=== PATIENT | male | born 1965 | race Caucasian/White ===

== ENCOUNTER 2017-01-30 17:30 | Outpatient (RCR) | payer OTHER, SELFPAY ==
--- NOTE | 2016-09-16 08:50 | HP.OTEVAL_ITS ---
Patient's Visit Information CURRY CR is a 51 year old M, referred to Occupational Therapy by Mikel Brush MD,, with a diagnosis of low end radius fx closed fx with routine heal. Date of Evaluation: 09/12/16 Occupational Therapist: Ana Pedroza - Subjective Subjective: Pt sitting in chair, calm and ready for OT evaluation. Pt states stiffness in L wrist, but no real pain and no decreased sensation. Pt demo decreased AROM L wrist, flexion, extension, ulnar/radial deviation. Pt states no problems with manipulation of buttons, lids or any difficulties with BADL/ IADLS. Pt states he does have pain when trying to golf. He still works and states no difficulty with wrist for work duties. States has no problems with opening containers. Pt is R hand dominent. Pt states no difficulty using L wrist for functional tasks around house such has weed eating, it is just stiff and doesn't have full range of motion in L wrist from sx in March after fall off ladder. Pt states was cleaning gutters out in March on a warmer day when fell off ladder and broke his L wrist and had to have plates put in. - Pain Left Wrist 1 Pain Intensity Range: 1 - Objective Objective/Observation: Pt sitting in chair, calm and ready for OT evaluation. Pt states stiffness in L wrist, but no real pain and no decreased sensation. Pt demo decreased AROM L wrist, flexion, extension, ulnar/radial deviation. - ROM ROM Comments: L wrist AROM extension 35', flexion 25', radial deviation 10', ulnar deviation 40'. R wrist AROM extension 62' flexion 72', radial deviation 25', ulnar deviation 40'. L wrist PROM extension 60', flexion 60', radial deviation 30', ulnar deviation 45' - Strength Application Counselor: 52 Lateral Pinch: 10 Tripod Pinch: 18 Strength Comments: L hand real estate associate strength 52. Lateral Pinch 10. Tripod Pinch 18 - Edema Other: no edema noted - Sensation Stereognosis: Normal - Right, Normal - Left Kinesthesia: Normal - Right, Normal - Left Sensation Comments: pt states L hand/wrsit sensation WNL even over scar from sx - Upper Limb Functional Index ULFI Score: 5 - DASH-Disabilities of Arm, Shoulder& Hand DASH Sum: 39 - Goals Goal:: Pt will demo increased real estate associate strength L hand by 10# at discharge to assist w/ functional tasks and hobbies. Goal:: Pt will demonstrate increased L wrist ROM all planes AROM by 15' to assist w/ functional tasks and hobbies. Goal:: Pt will demo 0/10 pain at rest and with activity by OT discharge. Goal:: Pt will demonstrate increased L wrist radial/ulnar deviation WFL to hold a golf club for golfing without pain 0/10 to complete his hobby of golfing by discharge from OT. Goal:: Pt will be educated on L wrist/hand HEP to increase strength and ROM with good understanding and demonstration 100%x. - Rehabilitation Rehabilitation Potential: Good - Anticipated Interventions Anticipated Interventions: A/AAROM/PROM, Strengthening, Massage, Modalities, Fine Motor Coord/Angelo, Home Program - Visit Plan Frequency: 2x /Week Duration: 6 Weeks General Plan: Increase L wrist/hand AROM and strength to assist w/ all functional tasks and hobbies back to PLOF. TEXT: Thank you for the opportunity to evaluate your patient. For Medicare and Medicare HMO plans, please review the plan of care and approve it. It will need to be FAXED BACK to us at [phone] for Medicare purposes. Please let me know if there are questions or concerns regarding this plan of care. Physician Signature: Date:
--- NOTE | 2016-10-27 12:48 | HP.OTCOM ---
OT Communication Note 10/27/[address] Mikel Brush MD Mr. Martines has been seen in occupational therapy for 4 weeks. He has made gains with his ROM and strength. His ROM is limited with the initial start of therapy and following PRE and stretching pt gains 15 degrees of motion - Pt may benefit from dynamic splint to improve his overall ROM- Initial arrival wrist ROM wrist extension 60 flexion 15 and once done with the session wrist extension is 60 flexion is 25 degrees. With the pt having the ability to use a dynamic splint at home he possible could gain more functional ROM. Sincerely, Carolina Maritnez, OTR/L, CHT Contact Information
--- NOTE | 2017-01-30 18:47 | HP.OTDCSUM ---
HP - OT D/C Summary It has been my pleasure to treat CURRY CR under orders from Mikel Brush MD, for the diagnosis of low end radius fx closed fx with routine heal for a total of 13 visit(s). Please see the following information for a summary of their discharge status. - Objective Objective/Function: Wrist 70/40. Left metals sales representative 135# - Goals Patient Goals: Regain Strength, Decrease Swelling/Stiffness, Use Hand/Wrist/Arm Normally Again, Increase ROM, Resume Hobbies Goal:: Pt will demo increased metals sales representative strength L hand by 10# at discharge to assist w/ functional tasks and hobbies. Goal:: Pt will demonstrate increased L wrist ROM all planes AROM by 15' to assist w/ functional tasks and hobbies. Goal:: Pt will demo 0/10 pain at rest and with activity by OT discharge. Goal:: Pt will demonstrate increased L wrist radial/ulnar deviation WFL to hold a golf club for golfing without pain 0/10 to complete his hobby of golfing by discharge from OT. Goal:: Pt will be educated on L wrist/hand HEP to increase strength and ROM with good understanding and demonstration 100%x. - Plan Plan: pt to work with dyn brace and return in 3-4 weeks - D/C Information Discharge Comments: PT has made done well with his therapy and has made gains in in ROM and strength. Pt was using a stat-a-dyne to to provide prolonged stretch- pt was instructed to cont. to use stat-a-dyne as needed. Pt is D/C at this time. If there are questions or concerns regarding this patient's occupational therapy, please fell free to call me at [phone]. Thank you for the referral of this patient. Sincerely, Carolina Martinez, OTR/L, CHT
== END 2017-01-30 18:00 | disposition home or self-care (01) ==
LOC: OT 17:30
PROVIDERS: Visit Provider Specialist
DX: S52.572D Other intraarticular fracture of lower end of left radius, subsequent encounter for closed fracture with routine healing (principal); X58.XXXD Exposure to other specified factors, subsequent encounter
CPT/HCPCS: 97018; 97110; 97140; 97165; 97166; 97530

== ENCOUNTER 2018-06-01 11:56 | Day surgery (SDC) | payer OTHER, SELFPAY ==
[2018-05-25 10:08] VITALS: BP 118/75; PULSE 77; RESP 16; TEMP 37.1; O2SAT 97; BMI 35.5
--- NOTE | 2018-05-25 10:36 | SDCEKG_ITS ---
Test Reason : Blood Pressure : / mmHG Vent. Rate : 077 BPM Atrial Rate : 077 BPM P-R Int : 148 ms QRS Dur : 088 ms QT Int : 372 ms P-R-T Axes : 014 013 010 degrees QTc Int : 420 ms Normal sinus rhythm Normal ECG Confirmed by MILTON IRVIN, JAZMYN ([id number]), newspaper managing editor LIZETH BRADSHAW ([id number]) on 05/28/2018 2:51:30 PM Referred By: Julio Tovar Confirmed By:JAZMYN ROSE MD
[2018-05-25 10:47] LABS: Hematocrit 48.2 % (40-54); Hemoglobin 16.2 g/dl (13.0-16.5); Mean Corp Hgb Conc 33.6 g/gl (32-36); Mean Corpuscular Hgb 32.4 pg (27.0-32.0); Mean Corpuscular Volume 96.4 fL (80-94); Mean Platelet Vol. 10.4 fl (6.2-12.0); Platelet Count 230 K/mm3 (150-450); RBC Distribution Width CV 13.1 % (11.6-14.6); RBC Distribution Width SD 45.5 fl (35.1-43.9); White Blood Count 7.6 K/mm3 (4.4-11.0)
[2018-05-25 10:49] LABS: Scan Indicated on CBC? Y/N NO
--- NOTE | 2018-06-01 08:19 | HP.PCM_ITS ---
History and Physical Date of Admission: 06/01/18 New patient, 53-year-old male who does have a history of smoking about two weeks ago had gross hematuria which lasted about two days and then a few days ago past another blood clot. He's otherwise healthy takes medication for cholesterol. He does have an extensive smoking history but currently not a smoker. He had a CAT scan done the demonstrated an abnormal nodule within the bladder possibility of a blood clot or neoplasm was discussed. Today were to do a cystoscopy to evaluate this abnormal nodule inside the bladder. Doesn't have any problems with urination. No frequency urgency or palms empty his bladder his PSA has been normal. ALLERGIES: None MEDICATIONS: Simvastatin PSH: None PSH Notes: WRIST SURGERY NON- PSH: Patient not documented to have received pneumococcal vaccination PMH: Calculus of kidney Gross hematuria NON- PMH: Pure hypercholesterolemia, unspecified Immunizations: None FAMILY HISTORY: Colon Cancer - Runs in Family Diabetes II - Runs in Family Hypertension - Runs in Family SOCIAL HISTORY: Marital Status: Preferred Language: Vietnamese; Ethnicity: Not Or ; Race: White Current Smoking Status: Patient does not smoke anymore. Tobacco Use Assessment Completed: Used Tobacco in last 30 days? Smoking cessation counseling was provided. Does not use smokeless tobacco. Social Drinker. Does not use drugs. Drinks 4+ caffeinated drinks per day. Has not had a blood transfusion. REVIEW OF SYSTEMS: Constitutional: Patient denies fever, chills, weight loss, and weight gain. Eyes: Patient denies blurry vision, cataracts, and glaucoma. Ears, Nose, Mouth, Throat: Patient denies hearing loss, sleep apnea, and sinus infections. Cardiovascular: Patient denies chest pains, swollen ankles, irregular heartbeat, and pacemaker/defib. Respiratory: Patient denies shortness of breath, wheezing, oxygen, and cpap machine. Gastrointestinal: Patient denies abdominal pain, diarrhea, constipation, nausea, and vomiting. Genitourinary: Patient reports blood in the urine and history of stones. Nuria ent denies frequent urination, urinary retention, get up at night to void, leakage of urine, painful urination, frequent uti's, difficulty starting stream, weak stream/scanty, and bedwetting. Musculoskeletal: Patient denies sore muscles, back pain, and gout. Integumentary/Skin: Patient denies rash, skin cancer, and chronic itching. Neurological: Patient denies falling/unsteady, paralysis, and stroke/tia. Hematologic/Lymphatic: Patient denies abnormal bleeding, blood transfusion, swollen lymph nodes, deep venous thrombosis, and pulmonary embolism. VITAL SIGNS: 05/08/2018 08:46 AM Weight 265 lb / 120.2 kg Height 73 in / 185.42 cm BP 158/90 mmHg BMI 35.0 kg/m? - BMI Counseling was provided. PHYSICAL EXAMINATION: Scrotum: No lesions. No edema. No cysts. No warts. Epididymides: Right: no spermatocele, no masses, no cysts, no tenderness, no induration, no enlargement. Left: no spermatocele, no masses, no cysts, no tenderness, no induration, no enlargement. Testes: No tenderness, no swelling, no enlargement left testes. No tenderness, no swelling, no enlargement right testes. Normal location left testes. Normal location right testes. No mass, no cyst, no varicocele, no hydrocele left testes. No mass, no cyst, no varicocele, no hydrocele right testes. Urethral Meatus: Normal size. No lesion, no wart, no discharge, no polyp. Normal location. Penis: Circumcised, no warts, no cracks. No dorsal Peyronie's plaques, no left corporal Peyronie's plaques, no right corporal Peyronie's plaques, no scarring, no warts. No balanitis, no meatal stenosis. MULTI-SYSTEM PHYSICAL EXAMINATION: Constitutional: Well-nourished. No physical deformities. Normally developed. Good grooming. Neck: Neck symmetrical, not swollen. Normal tracheal position. Respiratory: No labored breathing, no use of accessory muscles. Cardiovascular: Normal temperature, normal extremity pulses, no swelling, no varicosities. Lymphatic: No enlargement of neck, axillae, groin. Skin: No paleness, no jaundice, no cyanosis. No lesion, no ulcer, no rash. Neurologic / Psychiatric: Oriented to time, oriented to place, oriented to person. No depression, no anxiety, no agitation. Gastrointestinal: No mass, no tenderness, no rigidity, non obese abdomen. Eyes: Normal conjunctivae. Normal eyelids. Ears, Nose, Mouth, and Throat: Left ear no scars, no lesions, no masses. Right e ar no scars, no lesions, no masses. Nose no scars, no lesions, no masses. Normal hearing. Normal lips. Musculoskeletal: Normal gait and station of head and neck. PAST DATA REVIEWED: Source Of History: Patient Lab Test Review: Basic Metabolic Panel (BMP), CBC Records Review: Previous Doctor Records, Previous Patient Records Urine Test Review: Urinalysis X-Ray Review: C.T. Abdomen/Pelvis: Reviewed Films. Reviewed Report. Discussed With Patient. 12/28/17 02/01/17 PSA Total PSA 0.69 0.67 PROCEDURES: Flexible Cystoscopy - 83969 Risks, benefits, and some of the potential complications of the procedure were discussed at length with the patient including infection, bleeding, voiding discomfort, urinary retention, fever, chills, sepsis, and others. All questions were answered. Informed consent was obtained. Antibiotic prophylaxis was given. Sterile technique and intraurethral analgesia were used. Meatus: Normal size. Normal location. Normal condition. Urethra: No strictures. External Sphincter: Normal. Verumontanum: Normal. Prostate: Non-obstructing. Mild hyperplasia. Bladder Neck: Non-obstructing. Ureteral Orifices: Normal location. Normal size. Normal shape. Effluxed clear urine. Bladder: A few trigone tumors. A dome tumor. 3+ cm tumor. Multifocal tumors. No trabeculation. Normal mucosa. No stones. Urinalysis - 96492 Dipstick Dipstick Cont'd Specimen: Voided Blood: Neg Appearance: Clear pH: 5.0 Color: Yellow Protein: Neg Glucose: Normal Urobilinogen: Neg Bilirubin: Neg Nitrites: Neg Ketones: Neg Leukocyte Esterase: Neg ASSESSMENT: ICD-10 Details 1 : Gross hematuria - R31.0 2 Personal history of urinary calculi - Z87.442 3 Abnormal radiologic findings on diagnostic imaging of renal pelvis, ureter, or bladder - R93.41 4 NON-: Pure hypercholesterolemia, unspecified - E78.00 PLAN: Document Letter(s): Created for Patient: Clinical Summary Notes: 53-year-old male with gross hematuria cystoscopy was done today he has a large tumor next to the left ureter orfice and multiple tumors within the bladder plan to set him up for a transurethral resection of bladder tumors. Probably a stent in the left side will need to resected the orfice on the left side. And also has multiple tumors throughout the bladder need to be cauterized. Also will place mitomycin C in the bladder to prevent recurrences. Explain to the patient of the surgery what to expect and will be set up in a few weeks.
[2018-06-01 12:12] VITALS: BP 106/67; PULSE 65; RESP 16; TEMP 36.6; O2SAT 97; BMI 35.5
[2018-06-01] MEDS: Cefazolin 2 GM in 0.9% Normal Saline 100 ML IV (12:58)
--- NOTE | 2018-06-01 13:08 | DCINST_ITS ---
Discharge Diet: Light diet - advance as tolerated Discharge Activity: Return to Normal Activity Call your doctor if your incision/area has: Continuous Slow Oozing, Sudden Increased Bleeding, Increased Pain/ Swelling, Increased Redness, Foul Smelling Discharge, Swelling at the incision site Call your doctor if you observe: Fever of 101 or Higher, Inability to urinate, Inability to have a bowel movement, Uncontrolled pain Suture Line Care: Avoid Pulling/Pushing, Avoid Pinching/Bending Instructions: Treating Bladder Cancer: TUR (Transurethral Resection) Allergies/Adverse Reactions: Allergies No Known Allergies Allergy (Verified 05/25/18 10:04) Medications to take at Discharge Ascorbic Acid [Vitamin C] 2 tab PO DAILY 05/25/18 Multivit-Min/FA/Lycopen/Lutein [Centrum Silver Tablet] 1 each PO DAILY 05/25/18 Simvastatin [Zocor] 40 mg PO QHS 05/25/18 Acetaminophen [Tylenol Extra Strength] 500 mg PO Q4H PRN PRN #20 tablet 06/01/18 Ibuprofen 600 mg PO Q6H PRN PRN #20 tablet 06/01/18 The following prescriptions were given: Acetaminophen [Tylenol Extra Strength] 500 mg PO Q4H PRN PRN #20 tablet PRN Reason: Pain Ibuprofen 600 mg PO Q6H PRN PRN #20 tablet PRN Reason: Pain Primary Care Physician: Per Fernandez MD [Primary Care Provider] - Test Results: Test results from this visit will be discussed in further detail at your follow- up appointment, if applicable. Please Follow Up With: Julio Tovar MD When: in 2 weeks, please call to make an appointment.
--- NOTE | 2018-06-01 13:30 | BLA_PTH ---
PATIENT: CURRY CR LOC: [facility] [place] U#:[id number] AGE/SX: 53/M ROOM: RE06/01/[address]: Dr. Julio Tovar MD : 1965 BED: DIS: 06/01/2018 SPEC #: [id number] RECD: 06/04/18 07:21 STATUS: CLARA TYLER #: [id number] NATI: 06/01/18 13:[address]: Julio Tovar DEPT: SURGICAL PATHOLOGY RECD BY: Fidencio Quezada ENTERED: 06/04/18 09:38 SP TYPE: BLADDER BX OTHR DR: Dr. Per Fernandez MD Tissues: Urinary bladder, NOS Procedures: Surgery Specimen Level V HEADER OPERATION: Cysto, Transurethral resection bladder, Olympus PRE-OP DIAGNOSIS: Bladder cancer TISSUE SUBMITTED: Bladder tumor MICROSCOPIC DIAGNOSIS Bladder tumor, TUR: Papillary urothelial carcinoma. See cancer summary below. SJ:she 06/05/18 BLADDER CANCER (TUR) SUMMARY: Procedure - TURBT Histologic type - urothelial (transitional cell) carcinoma Histologic grade - low grade (1-2/3) Tumor configuration - papillary Adequacy of material for determining muscularis propria invasion - muscularis propria (detrusor muscle) is not identified. Lymph-Vascular invasion - not identified Microscopic extent of tumor - noninvasive papillary carcinoma Additional pathologic findings - none The above summary is in compliance with [employer] (CAP) Cancer Protocols Checklist and [place] Joint Committee on Cancer (AJCC), Staging Manual, 8th Ed. COMMENT Case has been reviewed in consultation with Dr. Anderson who concurs with the above diagnosis. IDC:AM MICROSCOPIC DESCRIPTION Slides are reviewed. GROSS DESCRIPTION Received in fixative is one container labeled with the patient's name and designated bladder tumor. The specimen consists of multiple irregular fragments of light mcgregor soft tissue that in aggregate measure 2 x 1.5 x 0.2 cm. The specimen is totally submitted in one cassette. / AM:she 06/04/18 TC:0 CPT: 77796
--- NOTE | 2018-06-01 13:43 | PCM.OPRPT ---
Report of Operation Date of Procedure: 06/01/18 Pre-Operative Diagnosis: Bladder cancer multifocal with a 3 cm mass over the left ureteral orifice and a 1 cm mass over the right ureteral orifice Post-Operative Diagnosis: Same Surgery/Procedure Performed:: Transurethral resection of large bladder tumor multifocal tumors, left retrograde pyelogram, fluoroscopic interpretation of images. Instillation of mitomycin-C, dilation of urethral meatus Description of Surgical Findings:: 53-year-old male taken back to the operating room at the smooth induction of general anesthesia he was placed in dorsolithotomy position, patient was prepped and draped in usual sterile fashion, he had a very tight meatus so this was dilated with sounds up to 20 X Jamaican using an 18 Jamaican sound and is 20, then 22 then 24 with plenty of lubrication then after this I went in with a 24 Jamaican rigid noncontinuous flow Olympus resectoscope. I inspected the bladder with both the 30 and 70 degree lens identified all the tumors he had a tumor occupying over the left ureteral orifice about 3 cm in size but mostly papillary tumor with a small stalk he also had a 1 cm tumor over the right ureteral orifice, he also had a small little tumor on the right lateral wall. I then switched over to the resectoscope the patient was under anesthesia for paralyzation I resected the tumor over the left ureteral orifice is very close to the orifice but I did not appear involved after resecting this and I went to the right side resected that tumor and also cauterized a small tumor on the lateral wall after cauterizing all these tumors I inspected again with 30 and 70 degree lens I did not see any other tumors within the bladder I think cannulated the left ureteral orifice with a Pollack and performed a retrograde pyelogram retrograde pyelogram was normal with normal contrast going into the ureter and the renal pelvis with no filling defects and then good drainage. Therefore no stent was placed on the left side. I then took out the resectoscope look back in with a 21 Jamaican rigid cystourethroscope with a 30 and 70 degree lens could see some irritation redness around the area of resection on both sides so I decided to cauterize this some more so went back in with the resectoscope and cauterized around the area of the resection to I had a nice wide margin from the original resection once this was completed then I put a 16 Jamaican catheter into the bladder but the bladder drain and then instilled 40 cc of 40 mg of mitomycin-C into the bladder this was clamped and will be unclamped in 1 hour. Patient anesthetic she is being reversed. Type of Anesthesia:: General Anesthesiologist: Edson Garcia Special Medications: Mitomycin C 40mg/40cc Drains: 16 fr garcia Estimated Blood Loss (mL): none - Admit VTE Documentation VTE Present on Admission: No VTE Mechan Device Prophylaxis: SCD's
[2018-06-01 13:59] VITALS: BP 106/67; BP 123/82; PULSE 73; RESP 14; TEMP 37.3; O2SAT 89
[2018-06-01 14:15] VITALS: BP 106/67; BP 118/75; PULSE 62; RESP 16; O2SAT 99
[2018-06-01 14:30] VITALS: BP 106/67; BP 108/71; PULSE 62; RESP 16; O2SAT 97
[2018-06-01 14:46] VITALS: BP 106/67; BP 123/74; PULSE 61; RESP 16; TEMP 36.9; O2SAT 97
[2018-06-01] MEDS: Acetaminophen 325 MG Tablet 650 MG PO (15:16)
[2018-06-01 15:38] VITALS: BP 106/67; BP 135/77; PULSE 64; RESP 16; TEMP 36.9; O2SAT 97
== END 2018-06-01 15:46 | disposition home or self-care (01) ==
LOC: SDC 11:58 → AC 11:59
PROVIDERS: Anesthesiology; Family Provider Family Medicine; PCP Family Medicine; Referring Provider Urology; Visit Provider Urology
PROC: 0TBB8ZZ Excision of Bladder, Via Natural or Artificial Opening Endoscopic (ICD-10-PCS; CPT 52005; principal; 2018-06-01 13:20)
DX: C67.9 Malignant neoplasm of bladder, unspecified (principal); R93.41 Abnormal radiologic findings on diagnostic imaging of renal pelvis, ureter, or bladder; E78.00 Pure hypercholesterolemia, unspecified; Z87.891 Personal history of nicotine dependence; Z87.442 Personal history of urinary calculi; Z79.899 Other long term (current) drug therapy
CPT/HCPCS: 00912; 52005; 52240; 53899; 76000; 85027; 88305; 88307; 93005; J7120; J2405; J3490; J9280

== ENCOUNTER → 2019-03-01 11:31 | Outpatient (CLI) | payer OTHER, SELFPAY ==
--- NOTE | 2019-02-28 | IMM_PTH ---
PATIENT: CURRY CR LOC: [facility] U#:[id number] AGE/SX: 59/M ROOM: RE03/01/[address]: Dr. Julio Tovar MD : 1965 BED: DIS: SPEC #: [id number] RECD: 03/04/19 11:56 STATUS: CLARA REQ #: [id number] NATI: 02/28/19 00:[address]: Julio Tovar DEPT: IMMUNOHISTOCHEMISTRY RECD BY: Fidencio Quezada ENTERED: 03/04/19 11:57 SP TYPE: IMMUNO OTHR DR: Dr. Per Fernandez MD Tissues: Urinary bladder, NOS Procedures: CK20 (add) KI-67 (add) P53 (add) CD44 (add) CK7 (initial) PHYSICIAN & INSTITUTION [place] [id number] SPECIMEN INFORMATION: Tissue Source: Bladder biopsy Clinical Info: Bladder cancer Specimen Number: [id number] CPT code: 63578, 85217 x4 METHODOLOGY: Deparaffinized sections of prefer/formalin-fixed tissue or PAP/DQ stained slides are incubated with monoclonal/polyclonal antibodies/oligonucleotide probes. Localization is made via biotin free immunoperoxidase method. Appropriate controls are performed and reacted as expected. Results on target cell population are indicated in the following table: RESULTS: ANTIBODY / CLONE RESULT CK7 (OV-TL12/30) positive, focal CK20 (KS20.8) negative, rare anti-CD44 (SP37) positive P53 (DO-7) negative Ki-67 (30-9) negative These tests were developed and their performance characteristics determined by [facility]. They may not have been cleared or approved by the U.S. Food and Drug Administration. The FDA has determined that such clearance or approval is not necessary. The above immunohistochemical/dualISH markers are ordered and reviewed by the Pathologist. INTERPRETATION: Urinary bladder, biopsy: Mild urothelial atypia AM:laina 03/05/19
--- NOTE | 2019-02-28 08:00 | BLA_PTH ---
PATIENT: CURRY CR LOC: [facility] U#:[id number] AGE/SX: 59/M ROOM: RE03/01/[address]: Dr. Julio Tovar MD : 1965 BED: DIS: SPEC #: [id number] RECD: 02/28/19 17:35 STATUS: CLARA REDiana #: [id number] NATI: 02/28/19 08:[address]: Julio Tovar DEPT: SURGICAL PATHOLOGY RECD BY: Fidencio Quezada ENTERED: 03/01/19 11:36 SP TYPE: BLADDER BX OTHR DR: Dr. Per Fernandez MD Tissues: Urinary bladder, NOS Procedures: Surgery Specimen Level IV HEADER OPERATION: Bladder biopsy PRE-OP DIAGNOSIS: Bladder cancer TISSUE SUBMITTED: Bladder biopsy MICROSCOPIC DIAGNOSIS Urinary bladder , biopsy: Focal mild urothelial atypia, AM:sp 03/04/19 COMMENT Immunohistochemistry ([id number]) supports the above diagnosis. Case has been reviewed in consultation with Dr. Tinoco who concurs with the above diagnosis. IDC:SJ MICROSCOPIC DESCRIPTION Slides are reviewed. GROSS DESCRIPTION Received is one container labeled with the patient name and designated bladder biopsy. The specimen consists of one irregular fragment of light mcgregor soft tissue that measures 0.1 x 0.1 x less than 0.1 cm. The specimen is totally submitted in one cassette. AM:denisa 03/01/19 TC: ? CPT: 33730
== END ==
PROVIDERS: Family Provider Family Medicine; PCP Family Medicine; Visit Provider Urology
DX: C67.9 Malignant neoplasm of bladder, unspecified (principal)
CPT/HCPCS: 88305; 88341; 88342

== ENCOUNTER → 2020-04-14 09:42 | Outpatient (CLI) | payer OTHER, SELFPAY ==
[2020-04-14 12:34] LABS: ALB/GLOB Ratio 1.5 RATIO (0.9-2.4); AST(SGOT) 19 U/L (15-37); Alanine Aminotransfer ALT/SGPT 38 U/L (16-61); Albumin, Serum 4.1 g/dL (3.2-5.0); Alkaline Phosphatase 56 U/L (45-117); Anion Gap 7 (5-15); BUN 18 mg/dL (7-18); BUN/Creat Ratio 19.8 RATIO (10-20); Calcium,Total 8.8 mg/dL (8.5-10.1); Chloride 110 mmol/L (98-107); Cholesterol 184 mg/dL (200); Creatinine, Serum 0.91 mg/dL (0.70-1.30); EST Glomerular Filtration Rate 92 mL/min (>60); Est Glom Filt Rate - Afr Amer 111 mL/min (>60); Globulin 2.8 g/dL (2.2-4.2); Glucose 93 mg/dL (74-106); High Density Lipoprotein 41 mg/dL; PSA,Total - Annual Screen 1.12 ng/mL (0.00-4.00); Potassium 4.2 mmol/L (3.5-5.1); Protein, Total 6.9 g/dL (6.4-8.2); Sodium Level 140 mmol/L (136-145); Triglycerides 122 mg/dL; Very Low Density Lipoprotein 24 mg/dL (5-40)
== END ==
PROVIDERS: PCP Family Medicine; Referring Provider Family Medicine; Visit Provider Family Medicine
DX: E78.5 Hyperlipidemia, unspecified (principal); Z12.5 Encounter for screening for malignant neoplasm of prostate
CPT/HCPCS: 36415; 80053; 80061; 84153; G0103

== ENCOUNTER → 2020-07-06 | Outpatient (CLI) | payer OTHER, SELFPAY ==
--- NOTE | 2020-07-06 08:30 | CYSPIN_PTH ---
PATIENT: CURRY CR LOC: [facility] U#:[id number] AGE/SX: 55/M ROOM: RE07/06/[address]: Dr. Julio Tovar MD : 1965 BED: DIS: 07/06/2020 SPEC #: [id number] RECD: 07/06/20 13:55 STATUS: CLARA REQ #: [id number] NATI: 07/06/20 08:[address]: Julio Tovar DEPT: CYTOLOGY RECD BY: Oanh Valerio ENTERED: 07/06/20 13:55 SP TYPE: CYSPIN FL OTHR DR: Dr. Per Fernandez MD Tissues: Urine Procedures: Pap Stain (control) Special Stain Group II Cytospin Fluid Comments: @ Specimen number changed from [id number] to [id number] @ on 07/06/20 at 1411 by RGOOD. HEADER OPERATION: Not noted PRE-OP DIAGNOSIS: History malignant neoplasm of bladder TISSUE SUBMITTED: Urine for cytology DIAGNOSIS CYTOLOGY Urine for cytology (cytospin): Negative for malignant cells. AM:she 07/07/2020 CYTOLOGY STUDY Slides are reviewed. CYTOLOGY GROSS Received is 100 ml of light yellow cloudy fluid labeled with the patient's name and and designated per the requisition as urine. Submitted for cytology preparation. / she 07/06/2020 TC:5 CPT: 15305
[2020-07-06 13:44] LABS: Cytology, Body Fluid / CSF SEE PATHOLOGY REPORT
== END | disposition home or self-care (01) ==
LOC: LABSPEC 13:30
PROVIDERS: PCP Family Medicine; Visit Provider Urology
DX: Z85.51 Personal history of malignant neoplasm of bladder (principal)
CPT/HCPCS: 88108; 88313

== ENCOUNTER → 2021-02-09 | Outpatient (CLI) | payer OTHER, SELFPAY ==
--- NOTE | 2021-02-09 08:30 | CYSPIN_PTH ---
PATIENT: CURRY CR LOC: [facility] U#:[id number] AGE/SX: 55/M ROOM: RE02/09/[address]: Dr. Julio Tovar MD : 1965 BED: DIS: 02/09/2021 SPEC #: [id number] RECD: 02/10/21 11:16 STATUS: CLARA REDiana #: [id number] NATI: 02/09/21 08:[address]: Julio Tovar DEPT: CYTOLOGY RECD BY: Oanh Valerio ENTERED: 02/10/21 11:17 SP TYPE: CYSPIN FL OTHR DR: Dr. Per Fernandez MD Tissues: Urine Procedures: Pap Stain (control) Special Stain Group II Cytospin Fluid HEADER OPERATION: Not noted PRE-OP DIAGNOSIS: Malignant neoplasm of bladder TISSUE SUBMITTED: Urine for cytology DIAGNOSIS CYTOLOGY Urine for cytology (cytospin): Negative for malignant cells. AM:she 02/11/2021 CYTOLOGY STUDY Slides are reviewed. CYTOLOGY GROSS Received is 60 ml of gold cloudy fluid labeled with the patient's name and and designated per the requisition as urine. Submitted for cytology preparation. / she 02/10/2021 TC:5 CPT: 53872
[2021-02-09 16:04] LABS: Cytology, Body Fluid / CSF SEE PATHOLOGY REPORT
== END | disposition home or self-care (01) ==
PROVIDERS: PCP Family Medicine; Visit Provider Urology
DX: Z85.51 Personal history of malignant neoplasm of bladder (principal)
CPT/HCPCS: 88108; 88313

== ENCOUNTER 2021-05-14 11:18 | Outpatient (CLI) | payer BC, SELFPAY ==
[2021-05-14 12:37] LABS: Anion Gap 6 (5-15); BUN 13 mg/dL (7-18); BUN/Creat Ratio 14.6 RATIO (10-20); Calcium,Total 8.8 mg/dL (8.5-10.1); Chloride 109 mmol/L (98-107); Cholesterol 199 mg/dL (200); Creatinine, Serum 0.89 mg/dL (0.70-1.30); EST Glomerular Filtration Rate 94 mL/min (>60); Est Glom Filt Rate - Afr Amer 114 mL/min (>60); Glucose 89 mg/dL (74-106); High Density Lipoprotein 36 mg/dL; PSA,Total - Annual Screen 1.31 ng/mL (0.00-4.00); Potassium 4.1 mmol/L (3.5-5.1); Sodium Level 139 mmol/L (136-145); Triglycerides 164 mg/dL; Very Low Density Lipoprotein 33 mg/dL (5-40)
== END 2021-05-14 23:59 | disposition home or self-care (01) ==
LOC: MFPLAB 11:23
PROVIDERS: PCP Family Medicine; Referring Provider Family Medicine; Visit Provider Family Medicine
DX: Z00.00 Encounter for general adult medical examination without abnormal findings (principal)
CPT/HCPCS: 36415; 80048; 80061; 84153; G0103

== ENCOUNTER → 2022-10-13 | Outpatient (CLI) | payer BC, SELFPAY ==
[2022-10-13 13:32] LABS: Anion Gap 5 (5-15); BUN 12 mg/dL (7-18); BUN/Creat Ratio 12.9 RATIO (10-20); Calcium,Total 9.1 mg/dL (8.5-10.1); Chloride 108 mmol/L (98-107); Cholesterol 196 mg/dL (200); Creatinine, Serum 0.93 mg/dL (0.70-1.30); EST Glomerular Filtration Rate 89 mL/min (>60); Est Glom Filt Rate - Afr Amer 107 mL/min (>60); Glucose 95 mg/dL (74-106); High Density Lipoprotein 33 mg/dL; PSA,Total - Annual Screen 2.53 ng/mL (0.00-4.00); Potassium 4.5 mmol/L (3.5-5.1); Sodium Level 140 mmol/L (136-145); Triglycerides 240 mg/dL; Very Low Density Lipoprotein 48 mg/dL (5-40)
== END | disposition home or self-care (01) ==
LOC: MFPLAB 10:58
PROVIDERS: PCP Family Medicine; Visit Provider Family Medicine
DX: E78.5 Hyperlipidemia, unspecified (principal); Z12.5 Encounter for screening for malignant neoplasm of prostate
CPT/HCPCS: 36415; 80048; 80061; 84153; G0103

== ENCOUNTER → 2023-06-19 | Outpatient (CLI) | payer BC, SELFPAY ==
--- NOTE | 2023-06-19 15:20 | RAD_ITS ---
INDICATION: CHEST PAIN EXAMINATION/TECHNIQUE: X-RAY - XR Chest 2 Views COMPARISON: FINDINGS: LINES/DEVICES: None. LUNGS: No consolidation, edema or effusion. Left basilar scarring/atelectasis. No pneumothorax. MEDIASTINUM AND CARDIOVASCULAR STRUCTURES: Cardiac silhouette not enlarged. Central airways and mediastinal contour are unremarkable. BONES AND SOFT TISSUES: Unremarkable. RAD/Chest PA and Lateral IMPRESSION: Left basilar scarring/atelectasis. Electronically Signed: Feliz Jones DO at 17:02 EDT ,
[2023-06-19 17:38] LABS: Absolute Lymphocyte Count 2.06 X10^3/uL (0.83-4.51); Absolute Neutrophil Count 7.4 X10^3/uL (2.0-7.7); Basophil# 0.05 X10^3/uL; Basophil% 0.5 % (0-1); Eosinophil# 0.29 X10^3/uL; Eosinophils% 2.7 % (0-5); Hematocrit 39.2 % (40-54); Hemoglobin 13.1 g/dL (13.0-16.5); Lymphocyte # 2.06 X10^3/ul (0.83-4.51); Lymphocyte % 19.1 % (19-41); Mean Corp Hgb Conc 33.4 g/dL (32-36); Mean Corpuscular Volume 98.7 fL (80-94); Mean Platelet Vol. 10.4 fl (6.2-12.0); Monocyte# 0.91 X10^3/uL; Monocyte% 8.4 % (0-10); NRBC Flagged by Analyzer 0 % (0-5); Neutrophil # 7.41 X10^3/uL (2.7-7.7); Neutrophil % 68.5 % (47-70); Platelet Count 326 K/mm3 (150-450); RBC Distribution Width CV 12.8 % (11.6-14.6); RBC Distribution Width SD 46.3 fl (35.1-43.9); Red Blood Count 3.97 M/mm3 (4.6-6.2); White Blood Count 10.8 K/mm3 (4.4-11.0)
[2023-06-19 18:04] LABS: Anion Gap 6 (5-15); BUN 13 mg/dL (7-18); BUN/Creat Ratio 14.4 RATIO (10-20); Calcium,Total 9.1 mg/dL (8.5-10.1); Chloride 109 mmol/L (98-107); EST Glomerular Filtration Rate 91 mL/min (>60); Est Glom Filt Rate - Afr Amer 111 mL/min (>60); Glucose 91 mg/dL (74-106); Potassium 3.9 mmol/L (3.5-5.1); Sodium Level 139 mmol/L (136-145)
[2023-06-19 18:25] LABS: D-Dimer Quantitative (DVT/PE) 1.76 FEU/ug/m (0.27-0.49)
== END | disposition home or self-care (01) ==
PROVIDERS: PCP Family Medicine; Referring Provider Family Medicine; Visit Provider Family Medicine
DX: R07.9 Chest pain, unspecified (principal)
CPT/HCPCS: 36415; 71046; 80048; 85025; 85379

== ENCOUNTER 2023-06-20 18:58 | Inpatient (IN) | payer BC, SELFPAY ==
[2023-06-20] VITALS (10 sets, daily range): BP systolic 109–141; BP diastolic 76–89; PULSE 100–110; RESP 16–27; TEMP 36.6; O2SAT 94–99; BMI 39.6
--- NOTE | 2023-06-20 19:14 | EKG12_ITS ---
Test Reason : dysrythmia Blood Pressure : / mmHG Vent. Rate : 105 BPM Atrial Rate : 105 BPM P-R Int : 154 ms QRS Dur : 084 ms QT Int : 342 ms P-R-T Axes : 047 037 031 degrees QTc Int : 452 ms Sinus tachycardia with occasional Premature ventricular complexes Nonspecific T wave abnormality Abnormal ECG Confirmed by MILTON IRVIN, JAZMYN ([id number]), science editor TEQUILA MCFARLAND ([id number]) on 06/21/2023 9:39:34 AM Referred By: Confirmed By:JAZMYN ROSE MD
--- NOTE | 2023-06-20 19:24 | EX.ED.DYSGE1 ---
HPI History of Present Illness Chief Complaint: Abn Labs Detail of Chief Complaint: Moderate pericardial effusion on CAT scan Informant: patient Onset/Context/Timing Onset: Weeks Context: Sudden Onset Timing: Intermittent Quality: Patient reports chief complaint of chest tightness with activity not shortn Location: Mid chest Current Severity: Gone Maximum Severity: Moderate Worsened by: Going up flights of steps Relieved by: After 2 minutes of rest Associated Symptoms Associated Symptoms: Dyspnea and radiation through to the back Narrative Narrative: Patient was seen by Dr. Fernandez today. Had an elevated D-dimer. CTA was obtained and reveals a moderate pericardial effusion. There is also atelectasis noted. Dr. Fernandez did call and prior to patient's arrival. Reported patient has shortness of breath. Patient states she does not have shortness of breath. His major concern is the chest tightness going up flights of steps for the past 2 to 3 weeks Presently has no chest discomfort. He denies shortness of breath. He denies swelling of his legs or feet. He has no known history of coronary disease, heart problems, hypertension, hypercholesterolemia or diabetes. He is a former smoker. Of note he is on cholesterol medicine. Review of prior records indicates she has elevated triglycerides as well as cholesterol. Prior similar symptoms: No Recent Illness/Hospitalization: No PFSH PFSH Home Medications ascorbic acid (vitamin C) 500 mg tablet (Vitamin C) 2 tab PO DAILY SUPPLEMENT 05/25/18 [History Last Taken Unknown] hippcmon-hps-hhlyx acid 0.4 mg-lycopene 300 mcg-lutein 250 mcg tablet (Centrum Silver) 1 ea PO DAILY SUPPLEMENT 05/25/18 [History Last Taken Unknown] simvastatin 40 mg tablet 40 mg PO QHS 05/25/18 [History Last Taken Unknown] acetaminophen 500 mg tablet 500 mg PO Q4H PRN PRN Pain ##20 06/01/18 [Rx Last Taken Unknown] ibuprofen 600 mg tablet 600 mg PO Q6H PRN PRN Pain #20 tabs 06/01/18 [Rx Last Taken Unknown] Allergy/AdvReac Type Severity Reaction Status Date / Time No Known Allergies Allergy Verified 06/20/23 19:00 Social History (Updated 06/20/23 @ 19:[address] Sea Block MD) household members: spouse Smoking Status: Former smoker ROS ROS ED Constitutional Constitutional ED: Denies chills, fever(s) or subjective Eyes Eyes: Denies blurry vision, change in vision or diplopia ENT ENT ED: Denies ear pain, rhinorrhea or sore throat Cardiovascular Cardiovascular: Reports chest pain; Denies orthopnea, palpitations, paroxysmal nocturnal dyspnea or racing heartbeat Respiratory/Chest Respiratory/Chest: Reports dyspnea on exertion; Denies cough, dyspnea, orthopnea, paroxysmal nocturnal dyspnea or sputum Gastrointestinal Gastrointestinal: Denies abdominal pain, diarrhea, melena or vomiting Genitourinary Genitourinary ED: Denies dysuria, hematuria or urinary frequency Musculoskeletal Musculoskeletal: Reports back pain; Denies arthralgias, myalgias or neck pain Integumentary Denies rash Neurologic Neurologic: Denies headache(s) or paresthesias Psychiatric Psychiatric: Denies anxiety or depression Hematologic/Lymphatic Hematologic/Lymphatic: Reports systems reviewed and no addt'l complaints, except as documented EXAM Physical Exam Const Vital Signs: 06/20/23 18:58 06/20/23 19:09 06/20/23 20:00 Temperature 97.8 F Temperature Source Temporal Pulse Rate 104 H 100 Respiratory Rate 16 24 H Respiratory Effort Normal Non-Labored Respiratory Pattern Normal Blood Pressure 141/89 H 116/82 H Blood Pressure Mean 106 93 Pulse Ox 99 98 Oxygen Delivery Method Room Air 06/20/23 20:30 06/20/23 21:00 06/20/23 22:00 Temperature Temperature Source Pulse Rate 100 102 H 102 H Respiratory Rate 22 H 18 20 H Respiratory Effort Respiratory Pattern Blood Pressure 109/76 124/86 H Blood Pressure Mean 87 98 Pulse Ox 97 97 94 Oxygen Delivery Method 06/20/23 22:15 06/20/23 22:30 06/20/23 22:45 Temperature Temperature Source Pulse Rate 100 106 H Respiratory Rate 22 H 23 H Respiratory Effort Respiratory Pattern Blood Pressure Blood Pressure Mean Pulse Ox 95 97 95 Oxygen Delivery Method 06/20/23 23:00 Temperature Temperature Source Pulse Rate 103 H Respiratory Rate 27 H Respiratory Effort Respiratory Pattern Blood Pressure Blood Pressure Mean Pulse Ox 94 Oxygen Delivery Method Positive well nourished, well developed and obese General Appearance ED: well developed and NAD; Negative for pallor Nutritional Appearance: obese HEENT Reports moist mucous membranes HEENT Narrative: Head is atraumatic normocephalic. Ears normal. Nares patent. Eyes PERRL and EOMs intact bilaterally General Eye ED: Negative for pale conjunctiva or scleral icterus Neck no lymphadenopathy, supple and no JVD Resp normal respiratory effort and clear to auscultation bilaterally Cardio regular rate, regular rhythm, S1 normal heart sound, S2 normal heart sound and no murmurs GI normal to inspection, nondistended, normoactive bowel sounds, non-tender, non-distended and no masses; Negative for hepatosplenomegaly Back/Spine no CVA tenderness Extremity Negative for normal to inspection General Extremety ED: Yes edema; Negative for tenderness General Extremity: edema Neuro oriented x3 and CN's II-XII intact bilaterally Sensorium / Orientation: alert Psych mental status grossly normal Skin no rashes or lesions noted, no wounds and skin turgor normal General Skin Exam: Negative for jaundice or pallor MDM MDM MDM Narrative Medical decision making narrative: CT does reveal moderate pericardial effusion. CT normally overestimates the amount of fluid. What is more concerning is the fact the patient has exertional chest tightness with radiation of the back and dyspnea for the past several weeks. His 2 risk factors are he is a former smoker high cholesterol. There is no concern for tamponade. Because he is having exertional chest tightness with dyspnea troponin was obtained. Since has been going on for several weeks only 1 level was obtained. He was not given aspirin since the etiology of his pericardial fusion is unknown. Sed rate was obtained as well as additional blood work that was not ordered by Dr. Fernandez as an outpatient. History & Record Review Additional record(s) reviewed:: Prior outpatient record and Prior labs Lab Data Attestation: I reviewed the patient's lab results. Lab results narrative: Troponin is less than 3. Labs: Laboratory Results - last 24 hr 06/20/23 06/20/23 19:20 20:28 ESR 13 Troponin I High Sens < 3 L Outpatient labs revealed an unremarkable CBC and basic metabolic panel. D-dimer was elevated 1.76. Management Discussion w/another healthcare provider: On Site Wastewater Systems Technician (Spoke with cardiology, Dr. Castro. After informing the patient's history, physical, laboratory studies and CAT scan results he recommends since patient is symptomatic that he be transferred. Patient given option [facility] versus [facility] facilities. Patient requested [facility]. Will ) and Other ([phone] She will contact hospitalist for admission with consult to cardiology and cardiothoracic.) Treatment and Re-Evaluation :: Poke with Dr. Sharpe the hospitalist at [facility]. She accepted patient. Discharge Plan Triage Chief Complaint: Abn Labs ED Provider: Sea Block Dx/Rx/DC Orders Clinical Impression: Chest pain, exertional, Hypercholesterolemia, Acute pericardial effusion Prescriptions: No Action simvastatin 40 MG tablet 40 mg PO QHS ascorbic acid (vitamin C) [Vitamin C] 500 MG tablet 2 tab PO DAILY iucnlvqq-dpj-QD-lycopen-lutein [Centrum Silver] 1 EACH tablet 1 ea PO DAILY acetaminophen 500 MG tablet 500 mg PO Q4H PRN PRN (Reason: Pain) Qty: 20 0RF ibuprofen 600 MG tablet 600 mg PO Q6H PRN PRN (Reason: Pain) Qty: 20 0RF Primary Care Provider: Per Fernandez Referrals: Per Fernandez MD [Primary Care Provider] - Disposition Disposition: Acute Care Hospital Discharge Location: [facility]
[2023-06-20 19:47] LABS: Troponin-I HS < 3 pg/mL (3.0-78.0)
[2023-06-20 20:40] LABS: Erythrocyte Sedimentation Rate 13 mm/hr (0-20)
[2023-06-21] VITALS (15 sets, daily range): BP systolic 97–144; BP diastolic 77–95; PULSE 93–114; RESP 16–42; TEMP 36.6–37.7; O2SAT 93–97; BMI 38.8; BMI 38.7
--- NOTE | 2023-06-21 05:38 | PCM.HP.STD ---
[facility] Date of Admission: 06/21/23 Date of Service: 06/21/23 Chief Complaint: Shortness of breath and chest pain radiating into back. [facility] Narrative CURRY MARTINES, is a 58 M with a past medical history of hyperlipidemia, obesity; with BMI of 39.6 this admission, former history of tobacco abuse and osteoarthritis who presents to [facility] ER complaining of shortness of breath and chest pain radiating into his back. Mr. Martines reports his symptoms began approximately 2 to 3 weeks prior to admission with a gradual onset of chest tightness that he first noticed while going up steps after he contracted a Viral URI while on a business trip to [place]. Since that time his shortness of breath worsened with chest pain that was sudden in onset, intermittent, moderate, radiating into his back and was made worse with activity and will usually resolve after approximately 2 minutes of rest. Therefore, yesterday on June 21, 2023 he was seen by Dr. Fernandez who checked a D-dimer which was found to be elevated triggering a CTA of the chest that revealed a moderate pericardial effusion without obvious signs of pericardial tamponade. He denies associated fever, chills, nausea, vomiting, lower extremity swelling, chest wall trauma, similar previous episodes or a known history of pericardial effusion and the sinus congestion he had was severe but has resolved. The ER physician who originally evaluated the patient contacted the pocket secretary assembler on-call at this facility who recommended transfer to tertiary care center in case patient would need a pericardial window with patient's transfer to [facility] delayed at this time due to decreased bed availability prompting hospitalist consultation to manage this patient while he awaits transfer and definitive care. His only notable events in the ER has been an asymptomatic 4 beat run of ventricular tachycardia that spontaneously resolved so antiarrhythmics were not administered. He was then admitted to the PCU for supportive care while he awaits transfer to tertiary care center noted above. [facility] Home Medications ascorbic acid (vitamin C) 500 mg tablet (Vitamin C) 2 tab PO DAILY SUPPLEMENT 05/25/18 [History Last Taken Unknown] cgxsxetc-zpi-zxrbn acid 0.4 mg-lycopene 300 mcg-lutein 250 mcg tablet (Centrum Silver) 1 ea PO DAILY SUPPLEMENT 05/25/18 [History Last Taken Unknown] simvastatin 40 mg tablet 40 mg PO QHS 05/25/18 [History Last Taken Unknown] acetaminophen 500 mg tablet 500 mg PO Q4H PRN PRN Pain ##20 06/01/18 [Rx Last Taken Unknown] ibuprofen 600 mg tablet 600 mg PO Q6H PRN PRN Pain #20 tabs 06/01/18 [Rx Last Taken Unknown] Allergy/AdvReac Type Severity Reaction Status Date / Time No Known Allergies Allergy Verified 06/20/23 19:00 Social History household members: spouse Smoking Status: Former smoker ROS ROS Narrative Review of systems: General: Patient denies fever or chills. HEENT: Patient admits to a recent viral URI with severe congestion that has since resolved as per HPI. EYES: Denies changes in vision or discharge from eyes. Resp: Patient admits to dyspnea on exertion. Cardiac: Patient admits to chest pain and tightness made worse with exertion as per HPI. GI: Denies abdominal pain, denies changes in bowel, denies nausea or vomiting. : Denies changes in urination Extremity: Denies swelling Musculoskeletal: Patient admits to back pain but denies arthralgias, myalgias or neck pain. Neuro: Patient denies headache, paresthesias or focal neurologic deficits. Heme: Denies any bleeding or bruising Skin: Denies rashes Psychiatric: No complaints voiced related to uncontrolled depression or anxiety. Endocrine: No polyuria, polydipsia or polyphagia. The rest of the 14 point ROS was negative except for positives in HPI. Vital Signs Vital Signs Vital Signs: 06/20/23 18:58 06/20/23 19:09 06/20/23 20:00 Temperature 97.8 F Temperature Source Temporal Pulse Rate 104 H 100 Respiratory Rate 16 24 H Respiratory Effort Normal Non-Labored Respiratory Pattern Normal Blood Pressure 141/89 H 116/82 H Blood Pressure Mean 106 93 Pulse Ox 99 98 Oxygen Delivery Method Room Air 06/20/23 20:30 06/20/23 21:00 06/20/23 22:00 Temperature Temperature Source Pulse Rate 100 102 H 102 H Respiratory Rate 22 H 18 20 H Respiratory Effort Respiratory Pattern Blood Pressure 109/76 124/86 H Blood Pressure Mean 87 98 Pulse Ox 97 97 94 Oxygen Delivery Method 06/20/23 22:15 06/20/23 22:30 06/20/23 22:45 Temperature Temperature Source Pulse Rate 100 106 H Respiratory Rate 22 H 23 H Respiratory Effort Respiratory Pattern Blood Pressure Blood Pressure Mean Pulse Ox 95 97 95 Oxygen Delivery Method 06/20/23 23:00 06/20/23 23:30 06/21/23 00:00 Temperature Temperature Source Pulse Rate 103 H 110 H 99 Respiratory Rate 27 H 22 H 19 H Respiratory Effort Respiratory Pattern Blood Pressure Blood Pressure Mean Pulse Ox 94 96 94 Oxygen Delivery Method 06/21/23 00:43 06/21/23 01:00 06/21/23 02:00 Temperature Temperature Source Pulse Rate 101 H 98 108 H Respiratory Rate 21 H 19 H 24 H Respiratory Effort Respiratory Pattern Blood Pressure 129/77 H 117/85 H 136/88 H Blood Pressure Mean 93 94 102 Pulse Ox 97 97 94 Oxygen Delivery Method 06/21/23 03:00 06/21/23 04:00 06/21/23 05:00 Temperature Temperature Source Pulse Rate 105 H 96 105 H Respiratory Rate 23 H 19 H 16 Respiratory Effort Respiratory Pattern Blood Pressure 134/77 H 144/95 H 130/87 H Blood Pressure Mean 93 110 100 Pulse Ox 93 95 95 Oxygen Delivery Method Weight Weight: 292 lb 1 oz Body Mass Index (BMI) 39.6 Physical Exam Const alert, oriented x3 and no apparent distress Constitutional Narrative: Patient is obese but appears comfortable and well-nourished. General Appearance: cooperative HEENT normocephalic, head/scalp atraumatic, hearing grossly normal bilaterally and moist oral mucous membranes Eyes PERRL and EOMs intact bilaterally Neck no lymphadenopathy and supple Resp normal respiratory effort, no retractions, no use of accessory muscles and clear to auscultation bilaterally Cardio regular rate and regular rhythm GI normal to inspection, nondistended, normoactive bowel sounds, soft to palpation, non-tender and non-distended GI Narrative: Obese. Extremity normal to inspection, full ROM and no clubbing, cyanosis or edema Skin Skin Narrative: Patient has no evidence of rash or abscess at this time. Neuro oriented x3, CN's II-XII intact bilaterally, moves all extremities and no focal motor deficits Sensorium / Orientation: awake, alert, oriented to person, oriented to place and oriented to time Speech: speech normal Motor Exam: strength 5/5 throughout Psych affect normal Results Medical Records Data Attestation: I reviewed the patient's medical records Lab / Micro Data Attestation: I reviewed the patient's lab results. Labs: Laboratory Results - last 24 hr 06/20/23 19:20: Troponin I High Sens < 3 L 06/20/23 20:28: ESR 13 Imaging [facility] Imaging Services [address] [place] [address] CTA Chest W/WO Contrast MR#: [id number] Acct: [id number] Name: CURRY MARTINES Rep #: [id number] : 1965 M 58 From: Adrian Cheek MD PCP: Dr. Per Fernandez MD Status: REG CLI Study: CTA Chest W/WO Contrast Date of Exam: 06/20/23 Exam# [id number] Ordering Dr: Per Fernandez MD STUDY: CTA CHEST REASON FOR EXAM: Male, 58 years old. CHEST PAIN RADIATION DOSAGE (If Supplied By Facility): CTDIvol = ( 13.61 ) mGy, DLP = ( 551.48 ) mGycm TECHNIQUE: The examination was performed with the intravenous administration of IV 100mL Isovue-370. Post-processing of the angiographic images was performed, with multiplanar reformation and 3D reconstruction. Individualized dose optimization techniques were used for this CT. COMPARISON: None. FINDINGS: Normal enhancement of the main pulmonary artery and right and left pulmonary arteries. Normal enhancement of the bilateral peripheral pulmonary arteries. There is no demonstrated pulmonary embolism. Normal thoracic aorta and visualized great vessels. There is no demonstrated aortic dissection. Heart size is normal although there is moderate sized pericardial effusion without definitive evidence for cardiac tamponade however echocardiogram would be useful for more definitive evaluation )... Subcentimeter mediastinal nodes likely benign. Normal hilar regions. Normal visualized trachea and bronchi. The lungs are well expanded. There is mild subsegmental atelectasis in the lower lobes as well as the lingula Normal pleura. Normal chest wall structures. Dorsal spine demonstrates mild spondylosis Normal visualized upper abdomen. CT/CTA Chest W/WO Contrast IMPRESSION: Mild subsegmental atelectasis at both lung bases and lingula.. No evidence for pulmonary embolus Moderate sized pericardial effusion once etiology without definitive evidence for cardiac tamponade however clinical correlation recommended Electronically Signed: Adrian Cheek MD at 18:48 EDT , CC: Dr. Per Fernandez MD ~ [employer] Liner: Signed Assessment & Plan Assessment/Plan (1) Acute pericardial effusion: (2) Chest pain, exertional: (3) Hypercholesterolemia: PLAN: Plan 1. Moderate Pericardial Effusion evident on CT this admission after recent Viral URI - Admit to PCU while patient awaits bed at [facility]. Check viral panel. Continue supportive care and monitor for improvement. If patient deteriorates while waiting steps will need to be taken to accelerate transfer but he is medically stable at this time. Finally, we will check echocardiogram to evaluate for signs of tamponade and to assess LVEF. 2. 4-beat run of NSVT noted in ER likely due to #1 - Check magnesium level and place on trimming machine operator. 3. Obesity; with BMI of 39.6 this admission complicating #1 & #2 - Weight loss will be recommended. Check TSH. 4. Hyperlipidemia - Resume statin and check Lipid Profile. 5. Former history of tobacco abuse - Noted. 6. Osteoarthritis - Give Tylenol prn. 7. DVT prophylaxis - SCD's only at this time with potential impending pericardial window. Total time: Approximately 55 minutes. Charges/Coding Visit Charges Inpatient E&M: 65010 Init Hosp L2
--- NOTE | 2023-06-21 05:59 | EKG12_ITS ---
Test Reason : Blood Pressure : / mmHG Vent. Rate : 101 BPM Atrial Rate : 101 BPM P-R Int : 162 ms QRS Dur : 082 ms QT Int : 328 ms P-R-T Axes : 046 034 027 degrees QTc Int : 425 ms Sinus tachycardia Nonspecific T wave abnormality Abnormal ECG When compared with ECG of 20-JUN-2023 20:00, Premature ventricular complexes are no longer Present Confirmed by JAZMYN ROSE MD ([id number]), editor department TEQUILA MCFARLAND ([id number]) on 06/22/2023 6:47:23 AM Referred By: DELFINA Confirmed By:JAZMYN ROSE MD
--- NOTE | 2023-06-21 06:04 | ECHOD_ITS ---
Reason For Study: PERICARDIAL EFFUSION Procedure This was a 2D Doppler, Color Flow transthoracic echocardiogram. Exam performed portable in patient room. Left Ventricle Normal LV size. Apical false tendon noted. Left ventricular systolic function is normal. The estimated ejection fraction is 60 %. No evidence for diastolic dysfunction. No regional wall motion abnormalities noted. Right Ventricle Normal RV size. Normal systolic function. Atria Normal left atrium. Normal right atrium. Mild right atrial invagination. Mitral Valve The mitral valve is structurally normal. No prolapse or stenosis seen. Tricuspid Valve Normal tricuspid valve. Aortic Valve Trisinus/trileaflet aortic valve. Trivial aortic valve insufficiency. Pulmonic Valve The pulmonic valve is not well visualized. Great Vessels Normal aortic root. Pericardium/Pleural Small to moderate circumferential pericardial effusion. There are no echocardiographic indications of cardiac tamponade. MMode/2D Measurements & Calculations LVIDd: 4.9 cm IVSd: 1.0 cm Ao root diam: 3.3 cm LVIDs: 3.3 cm LVPWd: 1.0 cm RVDd: 3.4 cm FS: 33.5 % LAV(MOD-bp): 45.5 ml LVAd ap4: 37.0 cm2 SV(MOD-sp4): 80.3 ml LAV(MOD-bp) Indexed: 18.2 ml/m2 LVLd ap4: 8.2 cm LAV(MOD-sp2): 46.0 ml EDV(MOD-sp4): 136.4 ml LAV(MOD-sp4): 41.8 ml EDV(sp4-el): 141.9 ml LVAs ap4: 21.4 cm2 LVLs ap4: 6.9 cm ESV(MOD-sp4): 56.1 ml ESV(sp4-el): 56.3 ml EF(MOD-sp4): 58.9 % EF(sp4-el): 60.3 % SV(sp4-el): 85.6 ml LA A4 area: 16.9 cm2 LA dimension(2D): 3.4 cm RA A4 area: 14.7 cm2 TAPSE: 1.7 cm Doppler Measurements & Calculations MV E max orestes: 60.5 cm/sec Lat Peak E' Orestes: 11.9 cm/sec Med Peak E' Orestes: 7.6 cm/sec MV A max orestes: 66.8 cm/sec E/E' lat: 5.1 E/E' med: 7.9 MV E/A: 0.91 Ao V2 max: 127.5 cm/sec LV V1 max: 102.9 cm/sec PA V2 max: 98.1 cm/sec Ao max P.5 mmHg LV V1 max P.2 mmHg ECHO/Echo Complete Interpretation Summary The estimated ejection fraction is 60 %. Structually normal valves. Small to moderate circumferential pericardial effusion. There are no echocardiographic indications of cardiac tamponade. No previous echo to compare The study was technically difficult. There is no co mparison study available. Ordering Physician: Randy Scott Referring Physician: RUSSEL HYDE Performed By: Krupa Rebollar RDCS
--- NOTE | 2023-06-21 06:45 | NURSING ---
PCU [facility] PERICARDIAL EFFUSION, EXERTIONAL CP
[2023-06-21] MEDS: 0.9% Normal Saline (1000mL) 1,000 ML 70 ML IV ×2 (07:45→22:40)
--- NOTE | 2023-06-21 10:57 | NURSING ---
I spoke with [facility] transfer line and they stated the pt has been accepted however they do not have a bed at this time.
--- NOTE | 2023-06-21 14:57 | PCM.HOSP.N ---
Hospitalist Note Mr. CR is a 58-year-old white male who presented to the emergency department at [facility] on 06/21/2023 early in the morning complaining of shortness of breath and chest pain that radiated to his back. He has no cardiac history but is obese with a history of tobacco abuse. He reported that his symptoms started about 2 to 3 weeks prior to presentation with gradual onset of chest tightness. He first noticed the tightness while going up the stairs after he contracted a viral URI while on a business trip in [place]. Since then his shortness of breath has worsened and the chest pain has been of sudden onset with intermittent, moderate, radiating quality to his back and is made worse with activity. He states that usually resolves about 2 minutes of rest. He was seen by his primary care physician, Dr. Fernandez, on the day prior to admission and a D-dimer was checked for which she was referred to the emergency department to obtain a CTA. CTA of the chest revealed a moderate pericardial effusion with no obvious signs of pericardial tamponade. The patient denied any associated fever, chills, nausea, vomiting, lower extremity swelling, chest wall trauma or previous episodes similar to this. Cardiology was contacted by the emergency department physician and they requested transfer to tertiary center for pericardial effusion since the patient was symptomatic. The patient did have a 4 beat run of ventricular tachycardia while in the emergency department and is currently being monitored on telemetry with no ongoing events. He was accepted at [facility] but currently is awaiting bed availability so was admitted to the PCU for ongoing care. We were told that they thought they would have a bed possibly later today on 06/21/2023. An echocardiogram has been ordered and is pending at this time. His CBC was unremarkable. Chemistry panel is unremarkable. His troponin was less than 3. Chest x-ray showed basilar atelectasis on the left and CT of the chest showed mild subsegmental atelectasis of both lung bases in the lingula, no PE, moderate size pericardial effusion without definitive evidence of tamponade. His vital signs are relatively stable and he is oxygenating well on room air with a sat of 94 to 96%. He does have some mild tachycardia. No current issues and await bed for transfer. Hopeful for transfer later today or through the night.
--- NOTE | 2023-06-22 00:04 | NURSING ---
report called to mamie modi at [facility]. Informed of pt's condition, health history, and most recent vs as well as reason for transfer.
--- NOTE | 2023-06-22 00:30 | NURSING ---
Pt was discharged to [facility] at this time with belongings
--- NOTE | 2023-06-22 06:57 | DS.PCM_ITS ---
Providers Date of Admission: 06/21/23 Date of Discharge: 06/22/23 Primary Care Physician: Dr. Per Hyde MD Reason For Visit: PERICARDIAL EFFUSION Diagnosis Discharge Diagnosis (1) Acute pericardial effusion: Status: Acute Code(s): I30.9 - Acute pericarditis, unspecified (2) Chest pain, exertional: Status: Acute Code(s): R07.9 - Chest pain, unspecified (3) Hypercholesterolemia: Status: Acute Code(s): E78.00 - Pure hypercholesterolemia, unspecified Medications at Discharge Home Medications ascorbic acid (vitamin C) 500 mg tablet (Vitamin C) 2 tab PO DAILY SUPPLEMENT 05/25/18 [id number] acid 0.4 mg-lycopene 300 mcg-lutein 250 mcg tablet (Centrum Silver) 1 ea PO DAILY SUPPLEMENT 05/25/18 acetaminophen 500 mg tablet 500 mg PO Q4H PRN PRN Pain ##20 06/01/18 ibuprofen 600 mg tablet 600 mg PO Q6H PRN PRN Pain #20 tabs 06/01/18 Hospital Course Procedures 2-D Echocardiogram, EKG and - (CTA of the chest) Summary of Care Provided Minutes Spent on Discharge: 15 Hospital Course: Mr. CR is a 58-year-old white male who presented to the emergency department at [facility] on 06/21/2023 early in the morning complaining of shortness of breath and chest pain that radiated to his back. He has no cardiac history but is obese with a history of tobacco abuse. He reported that his symptoms started about 2 to 3 weeks prior to presentation with gradual onset of chest tightness. He first noticed the tightness while going up the stairs after he contracted a viral URI while on a business trip in [place]. Since then his shortness of breath has worsened and the chest pain has been of sudden onset with intermittent, moderate, radiating quality to his back and is made worse with activity. He states that usually resolves about 2 minutes of rest. He was seen by his primary care physician, Dr. Hyde, on the day prior to admission and a D-dimer was checked for which she was referred to the emergency department to obtain a CTA. CTA of the chest revealed a moderate pericardial effusion with no obvious signs of pericardial tamponade. The patient denied any associated fever, chills, nausea, vomiting, lower extremity swelling, chest wall trauma or previous episodes similar to this. Cardiology was contacted by the emergency department physician and they requested transfer to tertiary center for pericardial effusion since the patient was symptomatic. The patient did have a 4 beat run of ventricular tachycardia while in the emergency department and is currently being monitored on telemetry with no ongoing events. He was accepted at [facility] but currently is awaiting bed availability so was admitted to the PCU for ongoing care. We were told that they thought they would have a bed possibly later today on 06/21/2023. An echocardiogram has been ordered and is pending at this time. His CBC was unremarkable. Chemistry panel is unremarkable. His troponin was less than 3. Chest x-ray showed basilar atelectasis on the left and CT of the chest showed mild subsegmental atelectasis of both lung bases in the lingula, no PE, moderate size pericardial effusion without definitive evidence of tamponade. His vital signs are relatively stable and he is oxygenating well on room air with a sat of 94 to 96%. He did have mild tachycardia throughout his hospital course. The echocardiogram was able to be performed prior to his discharge but not read till later in the afternoon and showed an EF of 60% with structurally normal valves, small to moderate circumferential pericardial effusion with no signs of t amponade. Bed became available at [facility] on 06/21/2023 the patient was discharged for further evaluation and care. Weight / BMI Weight Weight: 129.954 kg Body Mass Index (BMI) 38.7 Radiography Diagnostic Testing: Radiology Impression Echocardiogram 06/21/23 06:04 Interpretation Summary The estimated ejection fraction is 60 %. Structually normal valves. Small to moderate circumferential pericardial effusion. There are no echocardiographic indications of cardiac tamponade. No previous echo to compare The study was technically difficult. There is no comparison study available. Ordering Physician: Randy Scott Referring Physician: PER HYDE Performed By: Krupa Rebollar RDCS Meaningful Use Info Meaningful Use Diagnoses (Choose all that apply): None applicable Discharge Plan Admission Admit Date/Time: 06/21/23 06:22 Primary Reason for Your Visit: Shortness of breath Attending Provider: Estefani Paniagua Primary Care Provider: Per Hyde Consulting Providers: Randy Scott Discharge Orders/Prescriptions Prescriptions: No Action ascorbic acid (vitamin C) [Vitamin C] 500 MG tablet 2 tab PO DAILY Centrum Silver 1 EACH tablet 1 ea PO DAILY acetaminophen 500 MG tablet 500 mg PO Q4H PRN PRN (Reason: Pain) Qty: 20 0RF ibuprofen 600 MG tablet 600 mg PO Q6H PRN PRN (Reason: Pain) Qty: 20 0RF Referrals / Follow Up: Per Hyde MD [Primary Care Provider] - Disposition Disposition (needs filled in before D/C Order can be placed): [facility]
== END 2023-06-22 00:30 | disposition short-term general hospital (02) | DRG 315 ==
LOC: ED 23:55 → PCU 06-21 06:38
PROVIDERS: Admitting Provider Internal Medicine; Emergency Provider Emergency Medicine; PCP Family Medicine; Visit Provider Internal Medicine
DX: I30.9 Acute pericarditis, unspecified (principal); I47.20 Ventricular tachycardia, unspecified; M19.90 Unspecified osteoarthritis, unspecified site; E78.2 Mixed hyperlipidemia; E66.9 Obesity, unspecified; Z68.39 Body mass index [BMI] 39.0-39.9, adult; Z79.899 Other long term (current) drug therapy; Z87.891 Personal history of nicotine dependence
CPT/HCPCS: 84484; 85652; 93005; 93306; 94668; 99284; J7030; A4216

== ENCOUNTER → 2023-06-20 | Outpatient (CLI) | payer BC, SELFPAY ==
--- NOTE | 2023-06-20 17:34 | CT_ITS ---
STUDY: CTA CHEST REASON FOR EXAM: Male, 58 years old. CHEST PAIN RADIATION DOSAGE (If Supplied By Facility): CTDIvol = ( 13.61 ) mGy, DLP = ( 551.48 ) mGycm TECHNIQUE: The examination was performed with the intravenous administration of IV 100mL Isovue-370. Post-processing of the angiographic images was performed, with multiplanar reformation and 3D reconstruction. Individualized dose optimization techniques were used for this CT. COMPARISON: None. FINDINGS: Normal enhancement of the main pulmonary artery and right and left pulmonary arteries. Normal enhancement of the bilateral peripheral pulmonary arteries. There is no demonstrated pulmonary embolism. Normal thoracic aorta and visualized great vessels. There is no demonstrated aortic dissection. Heart size is normal although there is moderate sized pericardial effusion without definitive evidence for cardiac tamponade however echocardiogram would be useful for more definitive evaluation )... Subcentimeter mediastinal nodes likely benign. Normal hilar regions. Normal visualized trachea and bronchi. The lungs are well expanded. There is mild subsegmental atelectasis in the lower lobes as well as the lingula Normal pleura. Normal chest wall structures. Dorsal spine demonstrates mild spondylosis Normal visualized upper abdomen. CT/CTA Chest W/WO Contrast IMPRESSION: Mild subsegmental atelectasis at both lung bases and lingula.. No evidence for pulmonary embolus Moderate sized pericardial effusion once etiology without definitive evidence for cardiac tamponade however clinical correlation recommended Electronically Signed: Adrian Cheek MD at 18:48 EDT ,
== END | disposition home or self-care (01) ==
PROVIDERS: PCP Family Medicine; Referring Provider Family Medicine; Visit Provider Family Medicine
DX: R07.9 Chest pain, unspecified (principal)
CPT/HCPCS: 71275; Q9967

== ENCOUNTER → 2023-07-14 | Outpatient (CLI) | payer BC, SELFPAY ==
[2023-07-14 17:59] LABS: Anion Gap 6 (5-15); BUN 12 mg/dL (7-18); Calcium,Total 9.3 mg/dL (8.5-10.1); Chloride 107 mmol/L (98-107); Cholesterol 182 mg/dL (200); Creatinine, Serum 0.92 mg/dL (0.70-1.30); EST Glomerular Filtration Rate 89 mL/min (>60); Est Glom Filt Rate - Afr Amer 108 mL/min (>60); Glucose 94 mg/dL (74-106); High Density Lipoprotein 39 mg/dL; Potassium 4.3 mmol/L (3.5-5.1); Sodium Level 140 mmol/L (136-145); Triglycerides 123 mg/dL; Very Low Density Lipoprotein 25 mg/dL (5-40)
== END | disposition home or self-care (01) ==
LOC: MFPLAB 10:19
PROVIDERS: PCP Family Medicine; Visit Provider Family Medicine
DX: Z00.00 Encounter for general adult medical examination without abnormal findings (principal)
CPT/HCPCS: 36415; 80048; 80061

== ENCOUNTER → 2024-05-23 | Outpatient (CLI) | payer BC, SELFPAY ==
[2024-05-23 13:55] LABS: ALB/GLOB Ratio 1.9 RATIO (0.9-2.4); AST(SGOT) 17 U/L (<=37); Alanine Aminotransfer ALT/SGPT 21 U/L (<=46); Albumin, Serum 4.4 g/dL (3.5-5.0); Alkaline Phosphatase 63 U/L (40-129); Anion Gap 13 (5-15); BUN 15 mg/dL (4-19); Calcium 9.8 mg/dL (7.6-11.0); Carbon Dioxide 22.4 mmol/L (22.0-29.0); Chloride 106 mmol/L (96-108); Creatinine, Serum 0.8 mg/dL (0.8-1.3); EST Glomerular Filtration Rate 101 (>60); Globulin 2.3 g/dL (2.2-4.2); Glucose 102 mg/dL (70-99); PSA,Total - Annual Screen 1.14 ng/mL (0.02-4.00); Potassium 4.3 mmol/L (3.3-5.1); Protein, Total 6.8 g/dL (5.9-8.4); Sodium Level 141 mmol/L (133-145); Total Bilirubin 0.37 mg/dL (0.00-1.30)
[2024-05-23 20:13] LABS: Cholesterol 183 mg/dL (<=200); High Density Lipoprotein 42 mg/dL; Low Density Lipoprotein Calc. 114 mg/dL; Triglycerides 135 mg/dL; Very Low Density Lipoprotein 27 mg/dL (5-40); cholesterol:hdl ratio screen 4.36
== END | disposition home or self-care (01) ==
LOC: MFPLAB 08:26
PROVIDERS: PCP Family Medicine; Referring Provider Family Medicine; Visit Provider Family Medicine
DX: Z00.00 Encounter for general adult medical examination without abnormal findings (principal); N52.9 Male erectile dysfunction, unspecified; Z12.5 Encounter for screening for malignant neoplasm of prostate
CPT/HCPCS: 36415; 80053; 80061; 84153; 84403; G0103

== ENCOUNTER → 2024-10-23 | Outpatient (CLI) | payer BC, SELFPAY ==
[2024-10-23 11:17] LABS: Anion Gap 11 (5-15); BUN 16 mg/dL (4-19); BUN/Creat Ratio 16.9 RATIO (10-20); Calcium,Total 9.5 mg/dL (7.6-11.0); Carbon Dioxide 23.0 mmol/L (21.0-32.0); Chloride 107 mmol/L (98-108); Glucose 110 mg/dL (70-99); Potassium 4.3 mmol/L (3.3-5.1)
== END | disposition home or self-care (01) ==
LOC: MFPLAB 08:39
PROVIDERS: PCP Family Medicine; Referring Provider Family Medicine; Visit Provider Family Medicine
DX: E66.811 Obesity, class 1 (principal); N52.9 Male erectile dysfunction, unspecified
CPT/HCPCS: 36415; 80048; 84403; 84443